=== PATIENT | male | born 1955 | race Caucasian/White ===

== ENCOUNTER 2019-02-06 19:04 | Emergency (ER) | payer OTHER, MEDICAID ==
[~2019-02-06] VITALS: Ht 182.9 cm; Wt 99.8 kg
[2019-02-06 19:20] VITALS: BP 147/92
--- NOTE | 2019-02-06 19:20 | NUR ---
TO BED # 07 AMBULATORY
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
[2019-02-06 19:55] VITALS: BP 147/92
--- NOTE | 2019-02-06 19:55 | NUR ---
PT DISCHARGED WITH PAPERWORK. RX NORCO5, PEPCID, FLEXERIL. EDUCATED PT REGARDING MEDICATIONS AND S/E. EDUCATED PT REGARDING D/C DIAGNOSIS AND INSTRUCTIONS. PT VERBALIZED UNDERSTANDING OF TEACHING. TOLD PT TO FOLLOW UP WITH PCP AND WHEN TO RETURN TO ED. PT AT STABLE CONDITION. ABLE TO AMBULATE WITH SLOW STEADY GAIT. ALL QUESTIONS ANSWERED.
== END 2019-02-06 19:55 | disposition home or self-care (01) ==
LOC: MED 19:04
DX: M54.2 Cervicalgia (principal); Z76.0 Encounter for issue of repeat prescription; Z88.5 Allergy status to narcotic agent; V89.2XXA Person injured in unspecified motor-vehicle accident, traffic, initial encounter; Y93.89 Activity, other specified; Y92.89 Other specified places as the place of occurrence of the external cause; Y99.8 Other external cause status
CPT/HCPCS: 99283

== ENCOUNTER 2019-02-23 01:00 | Emergency (ER) | payer OTHER, MEDICAID ==
[~2019-02-23] VITALS: Ht 182.9 cm; Wt 104.0 kg
[2019-02-23 01:18] VITALS: BP 151/92
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
--- NOTE | 2019-02-23 01:53 | NUR ---
DR. VIPUL TADEO AT BEDSIDE.
[2019-02-23] MEDS ORDERED: KETOROLAC 60 MG/2 ML VIAL IM ONE (01:55)
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
[2019-02-23 02:30] VITALS: BP 151/92
--- NOTE | 2019-02-23 02:30 | NUR ---
REPORTS RELIEF; 4/10. PT STATES IS TOLERABLE AT THIS TIME.
--- NOTE | 2019-02-23 02:30 | NUR ---
Patient discharged with v/s stable. Written and verbal after care instructions given and explained. Patient alert, oriented and verbalized understanding of instructions. Ambulatory with steady gait. All questions addressed prior to discharge. ID band removed. Patient advised to follow up with PMD. Rx of Losartan Potassium given. Patient educated on indication of medication including possible reaction and side effects. Opportunity to ask questions provided and answered. Discharged by Dr. Berman.
== END 2019-02-23 02:30 | disposition home or self-care (01) ==
LOC: MED 01:00
DX: I10 Essential (primary) hypertension (principal); Z88.5 Allergy status to narcotic agent; Z98.890 Other specified postprocedural states
CPT/HCPCS: 96372; 99283; J1885

== ENCOUNTER 2023-08-05 15:25 | Emergency (ER) | payer MEDICAID, OTHER ==
[~2023-08-05] VITALS: Ht 182.9 cm; Wt 97.5 kg
[2023-08-05 16:27] VITALS: BP 147/80; PULSE 70; RESP 18; TEMP 97.3; O2SAT 98
[2023-08-05] MEDS ORDERED: ACET-8905 PO (17:23)
[2023-08-05] MEDS ORDERED: AMOX500C25 PO (17:23)
== END 2023-08-05 17:32 | disposition home or self-care (01) ==
LOC: MED 15:25
DX: K02.9 Dental caries, unspecified (principal); H92.01 Otalgia, right ear; I10 Essential (primary) hypertension; Z79.1 Long term (current) use of non-steroidal anti-inflammatories (NSAID); Z79.899 Other long term (current) drug therapy
CPT/HCPCS: 99283